=== PATIENT | male | born 1960 | race Caucasian/White ===

== ENCOUNTER 2019-06-29 01:32 | Day surgery (SDC) | payer OTHER, SELFPAY ==
[2019-06-26 16:33] VITALS: BMI 31.0
[2019-06-29] VITALS (12 sets, daily range): BP systolic 115–158; BP diastolic 70–98; PULSE 70–86; RESP 10–18; TEMP 36.4–37; O2SAT 95–100; BMI 31.1
--- NOTE | 2019-06-29 07:10 | SUR.PREOP ---
ARRIVES TO [facility] W/ DAUGHTER AT SIDE FOR SCHEDULED C W/ DR. HARRELL AT 0830. ORIENTED TO ROOM, PLAN OF CARE, PROCEDURE. QUESTIONS ANSWERED. DENIES PAIN OR SOB. IV STARTED, LABS SENT, VS OBTAINED, CONSENT SIGNED, SKIN PREP COMPLETED. WILL CONTINUE TO MONITOR.
[2019-06-29 07:42] LABS: Basophils Percent Auto 0.4 % (0.2-1.2); Eosinophils Absolute Auto 0.1 K/mm3 (0-0.3); Eosinophils Percent Auto 1.3 % (0-4.4); Hematocrit 45.3 % (42.0-52.0); Hemoglobin 15.6 g/dL (14.0-18.0); Immature Granulocyte Absolute 0.01 K/mm3 (0.00-0.031); Immature Granulocyte Percent A 0.2 % (0-0.5); Lymphocytes Absolute Auto 1.96 K/mm3 (0.9-3.2); Lymphocytes Percent Auto 36.8 % (18.3-44.2); Mean Corpuscular HGB Conc 34.4 g/dl (32-36); Mean Corpuscular Hemoglobin 31.1 pg (26-34); Mean Corpuscular Volume 90.4 fl (80-100); Mean Platelet Volume 9.7 fl (7.4-10.4); Monocytes Absolute Auto 0.5 K/mm3 (0.1-0.6); Monocytes Percent Auto 9.6 % (2.6-8.5); Neutrophils Absolute Auto 2.8 K/mm3 (1.3-6.7); Neutrophils Percent Auto 51.7 % (45.5-73.1); Platelet Count Result 265 k/mm3 (150-375); Red Blood Count 5.01 M/mm3 (4.6-6.20); Red Cell Distribution Width 12.2 % (11.5-14.5); White Blood Count 5.3 K/mm3 (4.5-10.0)
[2019-06-29 07:54] LABS: Blood Urea Nitrogen 19 mg/dL (9-20); Calcium 8.7 mg/dL (8.4-10.2); Carbon Dioxide 26 mmol/L (22-30); Chloride 104 mmol/L (98-107); Estimated CRCL calculation 75 ml/min; Estimated Glomerular Filt Rate > 60; Glucose 106 mg/dL (75-110); Potassium 4.1 mmol/L (3.4-5.0); Sodium 140 mmol/L (137-145)
--- NOTE | 2019-06-29 08:55 | WPDMODSED ---
Moderate Sedation Note-Pt Data Patient Data Diagnosis: Abnormal stress test, cardiomyopathy Present Complaint: none Procedure to be performed/Plan: left heart catheterization with selective left and right coronary angiography with left ventriculography and hemodynamics and possible percutaneous intervention and stent implantation Allergies Allergy/AdvReac Type Severity Reaction Status Date / Time lisinopril Allergy Severe Other Verified 06/29/19 08:17 Home Medications Medication Instructions Recorded Confirmed Type aspirin 81 mg PO DAILY 06/26/19 06/26/19 History carvedilol 3.125 mg PO BID 06/26/19 06/29/19 History cetirizine-pseudoephedrine 1 tablet PO HS 06/26/19 06/26/19 History [Zyrtec-D] losartan 50 mg PO HS 06/26/19 06/26/19 History Current Medications: Active Medications Sodium Chloride (Normal Saline Iv) 500 mls @ 100 mls/hr IV CONT .Q5H SARI Sedation/Anesthesia: No previous sedation/anesthesia problems (including family history). [facility] Past Medical History Medical History Cardiomyopathy Chronic fatigue History of tobacco abuse Hypertension Family History Family History Mother Heart disease Diabetes mellitus Hypertension Social History Social History Social History: , lives with his Smoking packs per day: 1 Smoking cigarettes per day: 20.0 Years smoked: 30 Smoking pack-years: 30.00 Smoking status: Former smoker Mod Sed Physical Exam Physical Exam Pre Procedural Exam: Normal: Appearance, Eyes, Ears, Nose, Neck ( supple, normal range of motion), Throat ( posterior hypopharynx clear, nonerythematous), Airway ( normal anatomy, no obstruction), Lungs ( clear to auscultation bilaterally), Heart Size, Heart Rate ( regular rate and rhythm), Heart Rhythm, Neuro Exam, Abdomen, Liver, Kidneys, Extremities and Skin Hours since solid foods: 12 Hours since liquid intake: 12 Internal Medicine - PN: Obj Da Vital Signs Vital Signs: Vital Signs - 24 hr 06/29/19 07:53 Temperature 36.7 C Pulse Rate 83 Respiratory Rate 14 Blood Pressure 145/98 H Pulse Oximetry 95 Meds/Results Medications: Active Medications Generic Name Dose Route Start Last Admin Trade Name Alejandra PRN Reason Stop Dose Admin Sodium Chloride 500 mls @ 100 mls/hr 06/29/19 06:45 Normal Saline Iv IV CONT .Q5H SARI Labs CBC & Chem 7: 06/29/19 07:22 06/29/19 07:22 Labs: Laboratory Results - last 24 hr 06/29/19 06/29/19 07:22 07:22 WBC 5.3 RBC 5.01 Hgb 15.6 Hct 45.3 MCV 90.4 MCH 31.1 MCHC 34.4 RDW 12.2 Plt Count 265 MPV 9.7 Immature Gran % (Auto) 0.2 Neut % (Auto) 51.7 Lymph % (Auto) 36.8 [place] % (Auto) 9.6 H Eos % (Auto) 1.3 Baso % (Auto) 0.4 Lymph # (Auto) 1.96 [place] # (Auto) 0.5 Eos # (Auto) 0.1 Baso # (Auto) 0.0 Abs Immat Gran (auto) 0.01 Absolute Neuts (auto) 2.8 Absolute Nucleated RBC 0.0 Nucleated RBC % 0.0 Sodium 140 Potassium 4.1 Chloride 104 Carbon Dioxide 26 BUN 19 Creatinine 1.00 Estim Creat Clear Calc 75 Estimated GFR > 60 Glucose 106 Calcium 8.7 ASA Classification/Sedation ASA Classification/Sedation ASA Class: III Emergent: No Risks: Risks, benefits and alternatives explained and patient/family accepted plan for sedation. Patient re-evaluated immediately prior to sedation.
--- NOTE | 2019-06-29 09:00 | WPDCARDPROC ---
Cardiac Cath Procedure Note Date of procedure:: 06/29/19 Performing physician:: Hai Stone MD
--- NOTE | 2019-06-29 09:00 | PM.PROC ---
Procedure Note - Detailed Date of procedure: 06/29/19 Pre-op diagnosis: Abnormal Stress Test, Cardiomyopathy, Chest Pain Procedure performed: BRIEF HISTORY OF PRESENT ILLNESS: Patient is a pleasant 59-year-old male with history of hypertension, history tobacco abuse, and chronic fatigue to underwent echocardiogram which revealed LV dysfunction EF 40-45% mild LV enlargement mild LVH, [id number] mitral regurgitation who subsequently underwent noninvasive ischemic evaluation which revealed EF 47% with hypokinesis of the basal and mid anteroseptal and basal inferoseptal wall with small area of mild ischemia in the mid and basal anteroseptal wall and fixed defect in the basal inferoseptal wall referred for coronary angiography for delineation of his coronary anatomy. PROCEDURES PERFORMED: 1. Left heart catheterization 2. Selective left and right coronary angiography 3. Left ventriculography and hemodynamics 4. Moderate/conscious sedation administration CATHETERS UTILIZED: Left coronary system- 5 Spanish JL4 catheter Right coronary system- 5 Spanish JR4 catheter Left ventriculography and hemodynamics- 5 Spanish angled pigtail catheter PROCEDURE IN DETAIL: After verbal and written informed consent was obtained the patient, risks, benefits, and alternatives explained in detail the patient agreed to proceed with the plan of care as outlined above. The patient was subsequently brought to the cardiac catheterization lab, placed on the cardiac catheterization table, and prepped and draped in the usual sterile fashion. Utilizing approximately 13cc of 1% subcutaneous Lidocaine, the right groin was then locally anesthetized. Utilizing the modified Seldinger technique, a 5 Spanish arterial vascular access sheath was inserted in the right common femoral artery easily and without complications. Through this access, coronary angiography was subsequently obtained in multiple standard re-projections. Following this, a 5 Spanish angled pigtail catheter was advanced retrograde across aortic valve into the cavity of the left ventricle. Left ventriculography was performed and pullback across aortic valve was subsequently recorded. The vascular access sheath and angiographic catheters were flushed before and after catheter exchanges. At the conclusion of the diagnostic portion of the procedure, all angiographic guidewires and catheters were removed and the 5 Spanish arterial vascular access sheath was then pulled and satisfactory hemostasis was achieved using manual compression. There no complications noted at the conclusion of the diagnostic portion of the study. MODERATE SEDATION/ANESTHESIA ADMINISTRATION: Patient reports no prior problems with sedation/anesthesia. Please see pre-sedation noted for physical examination documentation. Sedation start time was 0905 and end time was 09 for a total intra-service/procedure face-face time of 21 minutes. A total of 1 mg intravenous Versed and a total of 50 mcg intravenous Fentanyl was administered for moderate sedation. Moderate sedation was administered by qualified/certified observer Raffaele Moss RN under my supervision with intra-procedure [id number] observation and management throughout the entirety of the procedure. There were no other issues or complications and patient tolerated the procedure well. See post-anesthesia documentation. CORONARY ANGIOGRAPHY: The LEFT MAIN arose from the left coronary cusp and was without angiographically significant disease. The left main then bifurcated into the left anterior descending artery and circumflex coronary artery. LEFT ANTERIOR DESCENDING ARTERY: Moderate caliber extending to the LV apex giving rise to small bifurcating first diagonal and a small second diagonal angiographically normal with terminal vessel tortuosity which was noted throughout coronary anatomy. CIRCUMFLEX CORONARY ARTERY: Moderate caliber vessel giving risk to moderate first and smaller second O
--- NOTE | 2019-06-29 09:56 | SUR.PHASEII ---
0935 Patient returns to [facility] room [address] Stone, 5 fr sheath remains in RFA, no signs of bleeding or hematoma, will continue to monitor. Family at bedside, instructed on bedrest and restrictions. 0970 5 fr sheath removed per protocol by Arin MICHAEL firm manual pressure applied, no signs of bleeding or hematoma will continue to monitor.
[2019-06-29] MEDS: SODIUM CHLORIDE 0.9% IV 1,000 ML 125 ML IV CONT (10:30)
--- NOTE | 2019-06-29 10:41 | SUR.PHASEII ---
1025 HEMOSTASIS ACHIEVED, NO SIGNS OF BLEEDING OR HEMATOMA NOTED, WILL CONTINUE TO MONITOR. STAT SEAL AND TEGADERM APPLIED.
--- NOTE | 2019-06-29 13:35 | SUR.PHASEII ---
BEDREST X 3 HOURS COMPLETE. TOLERATED BEDREST WELL. R. GROIN CATH SITE SOFT, NONTENDER. NO BLEEDING OR HEMATOMA HAS BEEN NOTED. STAT SEAL AND TEGADERM DRESSING C/D/I TO SITE. R. PEDAL PULSE REMAINS WEAK ON PALP; R. POST TIB PULSE STRONG. AMBULATED TO BATHROOM TO VOID THEN RETURNED TO CHAIR. STEADY GAIT. VSS. WILL CONTINUE TO MONITOR.
--- NOTE | 2019-06-29 14:50 | SUR.PHASEII ---
IV SITE DISCONTINUED. R. GROIN SITE REMAINS UNCHANGED. DRESSING D/I. NO BLEEDING OR HEMATOMA NOTED. R. PEDAL PULSE REMAINS WEAK; R. POST TIB PULSE REMAINS STRONG. CAP REFILL TO R. FOOT WNL. SENSATION AND MOVEMENT TO R. FOOT WNL. REVIEWED DISCHARGE INSTRUCTIONS W/ PT AND COPY GIVEN. QUESTIONS ANSWERED. VOICED UNDERSTANDING OF ALL INSTRUCTIONS. DRESSING FOR DISCHARGE HOME.
--- NOTE | 2019-06-29 15:00 | SUR.PHASEII ---
DISCHARGED HOME, OUT VIA WC TO DAUGHTER'S WAITING CAR W/ ALL PERSONAL BELONGINGS AND DISCHARGE INSTRUCTIONS AND FOLLOW UP CARE. VOICES NO C/O. NO DISTRESS NOTED.
== END 2019-06-29 15:00 | disposition home or self-care (01) ==
PROVIDERS: Visit Provider Internal Medicine Cardiovascular Disease
PROC: 4A023N7 Measurement of Cardiac Sampling and Pressure, Left Heart, Percutaneous Approach (ICD-10-PCS; CPT 93452; principal; 2019-06-29 08:30)
DX: R94.39 Abnormal result of other cardiovascular function study (principal); I42.9 Cardiomyopathy, unspecified; R07.9 Chest pain, unspecified; R06.09 Other forms of dyspnea; I10 Essential (primary) hypertension; R53.82 Chronic fatigue, unspecified
CPT/HCPCS: 36415; 80048; 85025; 93458; C1887; C1894; J1644; J2250; J3010; J7030; J7040